=== PATIENT | male | born 1990 | race Caucasian/White ===

== ENCOUNTER 2016-10-24 12:34 | Emergency (ER) | payer OTHER ==
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
--- NOTE | 2016-10-24 13:46 | ED ORDER SUMMARY ---
..... Patient: PHUONG STANTON OrderSheet [facility] VisitID: [id number] [place] [address] 26y, M Registration Date/Time: 10/24/2016 ORDER SHEET Weight: 18.1 kg (stated) Allergies: No Known Drug Allergy GENERAL ORDERS: CT Abd/Pel w Cont (No) (pending) Urgent (12:49 10/24/2016 HBivens A.R.N.P.) (Ack 12:54 RKaruga) (14:15 SRoberts R.N.) CBC w Diff Urgent (12:50 10/24/2016 HBivens A.R.N.P.) (Ack 12:54 RKaruga) (12:55 KWilliams R.N.) CMP Urgent (12:50 10/24/2016 HBivens A.R.N.P.) (Ack 12:54 RKaruga) (12:55 KWilliams R.N.) UA-Culture if indicated Urgent (12:50 10/24/2016 HBivens A.R.N.P.) (Ack 12:54 RKaruga) (Cancelled: Physician Order14:15 SRoberts R.N.) Vitals (13:46 10/24/2016 HBivens A.R.N.P.) (14:15 SRoberts R.N.) MEDICATION ORDERS: IV FLUIDS: IV NS : initial bolus 1000 mL (1000 mL/hr), then none - for X1 (NOW) (12:49 10/24/2016 HBivens A.R.N.P.) (Ack 13:06 SRoberts R.N.) (14:16 SRoberts R.N.) Toradol IV 30 mg (NOW) (12:49 10/24/2016 HBivens A.R.N.P.) (Ack 13:06 SRoberts R.N.) (14:16 SRoberts R.N.) IV Saline Lock (12:50 10/24/2016 HBivens A.R.N.P.) (13:02 SRoberts R.N.) ORDER SHEET NOTES: [Electronically signed by Gudelia Rincon R.N. (14:10/24/2016)] [Electronically signed by Ayde Randall (14:36 10/24/2016)] [Electronically locked/signed by Gudelia Rincon R.N. (14:10/24/2016)]
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
--- NOTE | 2016-10-24 13:46 | ED ORDER SUMMARY ---
..... Patient: PHUONG STANTON OrderSheet [facility] VisitID: [id number] [place] [address] 26y, M Registration Date/Time: 10/24/2016 ORDER SHEET Weight: 18.1 kg (stated) Allergies: No Known Drug Allergy GENERAL ORDERS: CT Abd/Pel w Cont (No) (pending) Urgent (12:49 10/24/2016 HBivens A.R.N.P.) (Ack 12:54 RKaruga) (14:15 SRoberts R.N.) CBC w Diff Urgent (12:50 10/24/2016 HBivens A.R.N.P.) (Ack 12:54 RKaruga) (12:55 KWilliams R.N.) CMP Urgent (12:50 10/24/2016 HBivens A.R.N.P.) (Ack 12:54 RKaruga) (12:55 KWilliams R.N.) UA-Culture if indicated Urgent (12:50 10/24/2016 HBivens A.R.N.P.) (Ack 12:54 RKaruga) (Cancelled: Physician Order14:15 SRoberts R.N.) Vitals (13:46 10/24/2016 HBivens A.R.N.P.) (14:15 SRoberts R.N.) MEDICATION ORDERS: IV FLUIDS: IV NS : initial bolus 1000 mL (1000 mL/hr), then none - for X1 (NOW) (12:49 10/24/2016 HBivens A.R.N.P.) (Ack 13:06 SRoberts R.N.) (14:16 SRoberts R.N.) Toradol IV 30 mg (NOW) (12:49 10/24/2016 HBivens A.R.N.P.) (Ack 13:06 SRoberts R.N.) (14:16 SRoberts R.N.) IV Saline Lock (12:50 10/24/2016 HBivens A.R.N.P.) (13:02 SRoberts R.N.) ORDER SHEET NOTES: [Electronically signed by Gudelia Rincon R.N. (14:10/24/2016)] [Electronically signed by Ayde Randall (14:36 10/24/2016)] [Electronically locked/signed by Gudelia Rincon R.N. (14:10/24/2016)]
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
--- NOTE | 2016-10-24 14:37 | ED MAR SUMMARY ---
..... Medication Administration Record [facility] [address] [place] [address] Patient: PHUONG STANTON Visit ID: [id number] 26y, M Weight: 18.1 kg Height/Length: 67 in BMI: 6.3 ALLERGIES: No Known Drug Allergy Start 13:00 10/24/2016 Gudelia Rincon R.N., Stop 14:00 10/24/2016 Gudelia Rincon R.N. Medication Administered: IV NS (SALINE), Dose: IV Fluids over 1 hour(s), Rate: 1000 mL/hr, Dispensed: 1000 mL bag, Site: #1 right AC. Medication Ordered: IV NS : initial bolus 1000 mL (1000 mL/hr), then none - for X1 (NOW). Given 13:01 10/24/2016 Gudelia Rincon R.N. Medication Administered: TORADOL [IVP], Dose: 30 mg IVP over 1 minute(s), Site: #1 right AC. Medication Ordered: Toradol IV 30 mg (NOW).
--- NOTE | 2016-10-24 14:37 | ED MAR SUMMARY ---
..... Medication Administration Record Merged With [facility] [address] [place] [address] Patient: PHUONG STANTON Visit ID: [id number] 26y, M Weight: 18.1 kg Height/Length: 67 in BMI: 6.3 ALLERGIES: No Known Drug Allergy Start 13:00 10/24/2016 Gudelia Rincon R.N., Stop 14:00 10/24/2016 Gudelia Rincon R.N. Medication Administered: IV NS (SALINE), Dose: IV Fluids over 1 hour(s), Rate: 1000 mL/hr, Dispensed: 1000 mL bag, Site: #1 right AC. Medication Ordered: IV NS : initial bolus 1000 mL (1000 mL/hr), then none - for X1 (NOW). Given 13:01 10/24/2016 Gudelia Rincon R.N. Medication Administered: TORADOL [IVP], Dose: 30 mg IVP over 1 minute(s), Site: #1 right AC. Medication Ordered: Toradol IV 30 mg (NOW).
--- NOTE | 2016-10-24 14:37 | ED MED RECONCILIATION SUMMARY ---
Patient: PHUONG STANTON Medication Reconciliation Report [facility] VisitID: [id number] [place] [address] 26y, M Registration Date/Time: 10/24/2016 Weight: 18.1 kg Height/Length: 67 in. BMI: 6.3 ALLERGIES: No Known Drug Allergy The patient's Home Medications are listed below: THE FOLLOWING MEDICATIONS NEED TO BE RECONCILED: LamoTRIgine ER Oral 200mg bid Vicodin Oral The source(s) of the original Home Medication information: patient The following Medications were given to the patient in the Emergency Department: IV NS IV Fluids bolus 0, then 1000 mL/hr, administered: 10/24/2016 1:00:00 PM Toradol [IVP] IVP 30 mg, administered: 10/24/2016 1:01:00 PM The following Medications were prescribed to the patient: Naproxen 500 mg tablets: take 1 orally every 12 hours as needed for pain. Dispense twenty (20). No refills. -- Ayde Rnadall A.R.NNoemiP. Flexeril 10 mg: Take 1 orally every 8 hours as needed for muscle spasm. Dispense twenty (20). No refills. Substitution is permissible. -- Ayde Randall A.R.N.P.
--- NOTE | 2016-10-24 14:37 | ED MED RECONCILIATION SUMMARY ---
Patient: PHUONG STANTON Medication Reconciliation Report [facility] VisitID: [id number] [place] [address] 26y, M Registration Date/Time: 10/24/2016 Weight: 18.1 kg Height/Length: 67 in. BMI: 6.3 ALLERGIES: No Known Drug Allergy The patient's Home Medications are listed below: THE FOLLOWING MEDICATIONS NEED TO BE RECONCILED: LamoTRIgine ER Oral 200mg bid Vicodin Oral The source(s) of the original Home Medication information: patient The following Medications were given to the patient in the Emergency Department: IV NS IV Fluids bolus 0, then 1000 mL/hr, administered: 10/24/2016 1:00:00 PM Toradol [IVP] IVP 30 mg, administered: 10/24/2016 1:01:00 PM The following Medications were prescribed to the patient: Naproxen 500 mg tablets: take 1 orally every 12 hours as needed for pain. Dispense twenty (20). No refills. -- Ayde Randall A.R.NNoemiP. Flexeril 10 mg: Take 1 orally every 8 hours as needed for muscle spasm. Dispense twenty (20). No refills. Substitution is permissible. -- Ayde Randall A.R.N.P.
== END 2016-10-24 14:03 | disposition home or self-care (01) ==
LOC: ED SRH 12:34
DX: M79.1 Myalgia (principal); R10.32 Left lower quadrant pain; V38.0XXA Driver of three-wheeled motor vehicle injured in noncollision transport accident in nontraffic accident, initial encounter; Y93.9 Activity, unspecified; Y92.410 Unspecified street and highway as the place of occurrence of the external cause; Y99.9 Unspecified external cause status
CPT/HCPCS: 90100; 95059